=== PATIENT | male | born 1940 | race Caucasian/White ===

== ENCOUNTER 2020-09-23 16:35 | Inpatient (IN) ==
[2020-09-23 16:43] VITALS: BMI 25.8
--- NOTE | 2020-09-23 19:14 | DR.GENAD ---
HPI Time Seen Time Seen by Provider: 09/23/20 19:09 PCP Primary Care Physician: SARAHY HPI Comment HPI Comment: Patient presents with the complaint of flu-like illness x 3-4 days. Denies any known sick contacts. Dry cough. Denies any history of lung issues. Notes Stage 4 kidney disease but not on dialysis at this time. Complaint/Symptoms Chief Complaint:: PATIENT CAME TO ER REPORTS FEVER, WEAKNESS, AND COUGH. COVID-19 Coronavirus risk:travel/contact w/high risk person: No Has patient experienced Coronavirus symptoms: Yes Coronavirus symptoms experienced: Fever and Shortness of Breath Source History Provided: Patient Mode of Arrival Mode of Arrival: Wheelchair Timing Onset of Chief Complaint: 09/20/20 PMH PMH Past Medical History: Yes Past Medical History: Hypertension Past Medical History Comment: STAGE 4 KIDNEY DZ Past Surgical History: Yes Past Surgical History Comment: RIGHT ARM Family History History of Family Medical Conditions: Yes Family Medical History: Hypertension Travel Risk Coronavirus risk:travel/contact w/high risk person: No Has patient experienced Coronavirus symptoms: Yes Coronavirus symptoms experienced: Fever and Shortness of Breath Infectious screening In the last 2 months have you had wt loss of >10#?: NO Have you had fever, night sweats or hemotysis?: No Have you traveled outside the country in the last 6 months?: No Isolation: Standard ROS Review of Systems Constitutional: See HPI, Chills, Malaise and Weakness Respiratoy: Dry Cough All Other Systems: Reviewed and Negative PE Vital Signs Vitals: Temperature 99.0 F Pulse Rate 85 Respiratory Rate 20 Blood Pressure 136/78 O2 Sat by Pulse Oximetry 95 General Limitations: No Limitations General Appearance: Alert and In No Apparent Distress Head Head Exam: Normal Inspection, Atraumatic and Normocephalic Eyes Eye exam: Normal Appearance and EOMI ENT ENT Exam: Normal Exam and Normal Oropharynx Neck Neck Exam: Normal Inspection and Trachea Midline Chest Chest Inspection: Normal Inspection and Symmetric Chest Wall Rise Respiratory Respiratory Exam: Normal Lung Sounds Bilat Respiratory Exam: Bilateral: Rhonchi Cardiovascular Cardiovascular Exam: Regular Rate, Normal Rhythm and Normal Heart Sounds Abdominal Exam Abdominal Exam: Normal Inspection, Normal Bowel Sounds and Soft Neurologic Neurological Exam: Alert and Oriented X3 Psychiatric Psychiatric Exam: Normal Affect and Normal Mood Skin Skin Exam: Warm, Dry and Intact COURSE Treatment Treatment: Unable to get CTA chest due to elevated serum Cr level. Reevaluation 1st: Unchanged Consultation Consultation Comments: Spoke with Dr. Gudino who accepts this patient for admission. ROR Labs Reviewed Laboratory Results Reviewed?: Yes Result Diagrams: 09/23/20 19:21 09/23/20 19:21 Laboratory: WBC 7.5 X10^3/uL (3.6-10.0) 09/23/20 19:21 RBC 4.73 X10^6/uL (4.7-6.0) 09/23/20 19:21 Hgb 14.9 g/dL (13.5-18.0) 09/23/20 19: Hct 42.3 % (42.0-54.0) 09/23/20 19: MCV 89.4 fL (80.0-100.0) 09/23/20 19: MCH 31.5 pg (27.0-34.0) 09/23/20 19: MCHC 35.2 g/dL (33.0-35.0) H 09/23/20 19: RDW 14.1 % (11.6-16.5) 09/23/20 19: Plt Count 158 X10^3/uL (150.0-450.0) 09/23/20 19: MPV 6.6 fL (7.4-11.0) L 09/23/20 19:21 Neut % (Auto) 69.3 % (42.0-75.0) 09/23/20 19:21 Lymph % (Auto) 11.7 % (21.0-51.0) L 09/23/20 19:21 [place] % (Auto) 18.1 % (0.0-13.0) H 09/23/20 19:21 Eos % (Auto) 0.2 % (0.9-2.9) L 09/23/20 19:21 Baso % (Auto) 0.7 % (0.2-1.0) 09/23/20 19:21 Neut # (Auto) 5.2 x10^3/uL (2.2-4.8) H 09/23/20 19:21 Lymph # (Auto) 0.9 X10^3/uL (1.3-2.9) L 09/23/20 19:21 [place] # (Auto) 1.4 x10^3/uL (0.3-0.8) H 09/23/20 19:21 Eos # (Auto) 0.0 x10^3/uL (0.0-0.2) 09/23/20 19:21 Baso # (Auto) 0.0 X10^3/uL (0.0-0.1) 09/23/20 19:21 Absolute Nucleated RBC 0.0 /100WBC 09/23/20 19:21 D-Dimer 1.69 ug/ml (0.0-0.57) H* 09/23/20 19:21 Sample Site Lra 09/23/20 19:34 ABG pH 7.460 (7.35-7.45) H 09/23/20 19:34 ABG pCO2 24.0 mmHg (35.0-45.0) L 09/23/20 19:34 ABG pO2 72.0 mmHg (80.0-100.0) L 09/23/20 19:34 ABG HCO3 17.1 mmol/L (22-26) L* 09/23/20 19:34 ABG O2 Saturation 95.0 % (90-100) 09/23/20 19:34 ABG Base Excess -5.1 mmol/L (-2.0-2.0) L 09/23/20 19:34 Stiven Test Pos 09/23/20 19:34 A-a Gradient 48.0 mmHg 09/23/20 19:34 FiO2 21.0 09/23/20 19:34 Blood Gas Comments Jani well mts 09/23/20 19:34 Sodium 136 mmol/L (136-145) 09/23/20 19:21 Corrected Sodium TNP 09/23/20 19:21 Potassium 5.2 mmol/L (3.5-5.1) H 09/23/20 19:21 Chloride 101 mmol/L (98-107) 09/23/20 19:21 Carbon Dioxide 21.7 mmol/L (21-32) 09/23/20 19:21 BUN 38 mg/dL (7-18) H 09/23/20 19:21 Creatinine 2.81 mg/dL (0.70-1.30) H 09/23/20 19:21 Est GFR (MDRD) Af Amer 28 (>60) L 09/23/20 19:21 Est GFR (MDRD) Non-Af 23 (>60) L 09/23/20 19:21 Glucose 89 mg/dL (65-99) 09/23/20 19:21 Calcium 8.6 mg/dL (8.5-10.1) 09/23/20 19:21 Corrected Calcium TNP 09/23/20 19:21 Total Bilirubin 0.80 mg/dL (0.2-1.0) 09/23/20 19:21 AST 28 Units/L (15-37) 09/23/20 19:21 ALT 35 Units/L (12-78) 09/23/20 19:21 Alkaline Phosphatase 92 Units/L (46-116) 09/23/20 19:21 Creatine Kinase 81 Units/L (39-308) 09/23/20 19:21 CK-MB (CK-2) < 1.0 ng/mL (0-4.0) 09/23/20 19: CK/CKMB % Calc 1.2 % (<4) 09/23/20 19:21 Troponin I < 0.02 ng/mL (0-1.5) 09/23/20 19:21 B-Natriuretic Peptide 42.8 pg/mL (0-79) 09/23/20 19:21 Total Protein 7.9 g/dL (6.4-8.2) 09/23/20 19:21 Albumin 3.9 g/dL (3.4-5.0) 09/23/20 19: Globulin 4.0 g/dL (2.5-4.5) 09/23/20 19:21 Albumin/Globulin Ratio 1.0 Ratio (1.1-2.1) L 09/23/20 19:21 SARS-CoV-2 (PCR) Positive (NEGATIVE) A 09/23/20 19:53 Influenza Type A (PCR) Negative (NEGATIVE) 09/23/20 19:53 Influenza Type B (PCR) Negative (NEGATIVE) 09/23/20 19:53 RSV (PCR) Negative (NEGATIVE) 09/23/20 19:53 XRAY X-ray Results: HISTORY PATIENT CAME TO ER REPORTS FEVER, WEAKNESS, AND COUGH STUDY CHEST, 1 VIEW COMPARISON None available. FINDINGS The trachea is midline. The cardiac silhouette is borderline. Background changes of COPD are suggested with blunting of the left CP angle which can be seen with pleural thickening or a tiny pleural effusion. Although no lobar infiltrates are seen, central peribronchial wall thickening is observed which ca n be seen with an acute chronic bronchitis. Please correlate medically. The bony thorax is unremarkable. IMPRESSION As above. Electronically signed by: KWAN VORA III (Sep 23, 2020 20:22:03) Opioid Opioid Risk Tool Age ([place]osea box if 16-45): No History of Preadolescent Sexual Abuse: No Total: 0 Total Score Risk Category: Low Risk Copyright: Trae FLOWER predicting aberrant behaviors Diagnosis Discharge Problem: Pneumonia due to 2019 novel coronavirus
[2020-09-23 19:29] LABS: BASOPHILS % (AUTO) 0.7 % (0.2-1.0); EOSINOPHILS % (AUTO) 0.2 % (0.9-2.9); HEMATOCRIT 42.3 % (42.0-54.0); HEMOGLOBIN 14.9 g/dL (13.5-18.0); LYMPHOCYTES # (AUTO) 0.9 X10^3/uL (1.3-2.9); LYMPHOCYTES % (AUTO) 11.7 % (21.0-51.0); MEAN CORPUSCULAR HEMOGLOBIN 31.5 pg (27.0-34.0); MEAN CORPUSCULAR HGB CONC 35.2 g/dL (33.0-35.0); MEAN CORPUSCULAR VOLUME 89.4 fL (80.0-100.0); MEAN PLATELET VOLUME 6.6 fL (7.4-11.0); MONOCYTES # (AUTO) 1.4 x10^3/uL (0.3-0.8); MONOCYTES % (AUTO) 18.1 % (0.0-13.0); NEUTROPHILS # (AUTO) 5.2 x10^3/uL (2.2-4.8); NEUTROPHILS % (AUTO) 69.3 % (42.0-75.0); PLATELET COUNT 158 X10^3/uL (150.0-450.0); RED BLOOD COUNT 4.73 X10^6/uL (4.7-6.0); RED CELL DISTRIBUTION WIDTH 14.1 % (11.6-16.5); WHITE BLOOD COUNT 7.5 X10^3/uL (3.6-10.0)
[2020-09-23 19:35] LABS: ABG ALLEN TEST POS; ABG BASE EXCESS -5.1 mmol/L (-2.0-2.0); ABG HCO3 17.1 mmol/L (22-26)
[2020-09-23 19:52] LABS: ALANINE AMINOTRANSFERASE 35 Units/L (12-78); ALBUMIN 3.9 g/dL (3.4-5.0); ALKALINE PHOSPHATASE 92 Units/L (46-116); ASPARTATE AMINO TRANSFERASE 28 Units/L (15-37); BLOOD UREA NITROGEN 38 mg/dL (7-18); CALCIUM 8.6 mg/dL (8.5-10.1); CARBON DIOXIDE 21.7 mmol/L (21-32); CHLORIDE 101 mmol/L (98-107); CKMB % 1.2 % (<4); CREATINE KINASE 81 Units/L (39-308); CREATINE KINASE MB < 1.0 ng/mL (0-4.0); CREATININE 2.81 mg/dL (0.70-1.30); SODIUM 136 mmol/L (136-145); TOTAL PROTEIN 7.9 g/dL (6.4-8.2); TROPONIN I < 0.02 ng/mL (0-1.5); eGFR NON BLACK RACES 23 (>60)
--- NOTE | 2020-09-23 20:24 | RAD ---
HISTORYPATIENT CAME TO ER REPORTS FEVER, WEAKNESS, AND COUGHSTUDYCHEST, 1 VIEWCOMPARISONNone available.FINDINGSThe trachea is midline. The cardiac silhouette is borderline. Background changes of COPD are suggested with blunting of the left CP angle which can be seen with pleural thickening or a tiny pleural effusion. Although no lobar infiltrates are seen, central peribronchial wall thickening is observed which can be seen with an acute chronic bronchitis. Please correlate medically. The bony thorax is unremarkable.IMPRESSIONAs above.Electronically signed by: KWAN VORA III (Sep 23, 2020 20:22:03)
[2020-09-23] MEDS ORDERED: REMDESIVIR 200 MG in NS 250 ML IV 250 ML IV ONE (21:09)
[2020-09-23] MEDS ORDERED: REMDESIVIR IV ONE (21:34)
[2020-09-23] MEDS ORDERED: NS 250 ML IV 250 ML IV ONE (21:34)
[2020-09-23] MEDS ORDERED: NS 1000 ML 1,000 ML ONE (21:34)
[2020-09-23] MEDS: NS 1000 ML 1,000 ML IV SCH (21:48)
[2020-09-23] MEDS ORDERED: PHARMACY CONSULT - IVERMECTIN XX SCH (22:00)
[2020-09-23] MEDS: IVERMECTIN PO SCH (22:26)
[2020-09-24] MEDS ORDERED: NS 100 ML IV 100 ML ONE (01:33)
[2020-09-24] MEDS ORDERED: ASCORBIC ACID INJ MULTI-DOSE VIAL IV ONE (01:51)
[2020-09-24] MEDS: ASCORBIC ACID INJ MULTI-DOSE VIAL 1,500 MG in NS 100 ML IV 100 ML IV SCH ×4 (03:14→21:09)
[2020-09-24] MEDS ORDERED: TYLENOL 325 MG TAB PO PRN (03:39)
[2020-09-24 05:21] LABS: BASOPHILS % (AUTO) 0.2 % (0.2-1.0); HEMATOCRIT 39.5 % (42.0-54.0); HEMOGLOBIN 13.8 g/dL (13.5-18.0); LYMPHOCYTES # (AUTO) 0.3 X10^3/uL (1.3-2.9); LYMPHOCYTES % (AUTO) 4.8 % (21.0-51.0); MEAN CORPUSCULAR HEMOGLOBIN 31.1 pg (27.0-34.0); MEAN CORPUSCULAR HGB CONC 34.9 g/dL (33.0-35.0); MEAN CORPUSCULAR VOLUME 89.2 fL (80.0-100.0); MEAN PLATELET VOLUME 7.2 fL (7.4-11.0); MONOCYTES # (AUTO) 0.9 x10^3/uL (0.3-0.8); MONOCYTES % (AUTO) 14.5 % (0.0-13.0); NEUTROPHILS % (AUTO) 80.5 % (42.0-75.0); PLATELET COUNT 135 X10^3/uL (150.0-450.0); RED BLOOD COUNT 4.43 X10^6/uL (4.7-6.0); RED CELL DISTRIBUTION WIDTH 13.9 % (11.6-16.5); WHITE BLOOD COUNT 6.2 X10^3/uL (3.6-10.0)
[2020-09-24 05:30] LABS: ALANINE AMINOTRANSFERASE 41 Units/L (12-78); ALBUMIN 3.3 g/dL (3.4-5.0); ALKALINE PHOSPHATASE 77 Units/L (46-116); ASPARTATE AMINO TRANSFERASE 25 Units/L (15-37); BLOOD UREA NITROGEN 40 mg/dL (7-18); CALCIUM 7.8 mg/dL (8.5-10.1); CARBON DIOXIDE 18.9 mmol/L (21-32); CHLORIDE 100 mmol/L (98-107); COR CA(FOR HYPOALB) 8.4 mg/dL (8.5-10.1); CREATININE 2.66 mg/dL (0.70-1.30); SODIUM 137 mmol/L (136-145); TOTAL PROTEIN 6.8 g/dL (6.4-8.2); TROPONIN I < 0.02 ng/mL (0-1.5); eGFR NON BLACK RACES 25 (>60)
[2020-09-24] MEDS: BROVANA IN SCH ×2 (08:45→21:37)
[2020-09-24] MEDS: PULMICORT NEB TX 0.5 MG NEB SCH ×2 (08:45→21:43)
[2020-09-24] MEDS ORDERED: VITAMIN D (1.25MG) PO SCH (09:00)
[2020-09-24] MEDS ORDERED: VITAMIN A PO SCH (09:00)
[2020-09-24] MEDS ORDERED: LIPITOR TAB 80 MG PO SCH (09:00)
[2020-09-24] MEDS ORDERED: TRICOR TAB 160 MG PO SCH (09:00)
[2020-09-24] MEDS ORDERED: VIBRAMYCIN PO SCH (09:00)
[2020-09-24] MEDS ORDERED: PEPCID TAB 40 MG PO SCH (09:00)
--- NOTE | 2020-09-24 09:41 | RAD ---
HISTORYCOVID-19STUDYCHEST, 1 [id number]/2021FINDINGSStable cardiomediastinal silhouette. Increasing left base opacity with possible left effusion. Right lung grossly clear. No visible pneumothorax. No acute osseous finding.IMPRESSIONIncreasing left base opacity and possible left effusion.Electronically signed by: lAfonzo Montgomery (Sep 24, 2020 09:40:02)
[2020-09-24] MEDS: PriLOSEC PO SCH (09:58)
[2020-09-24] MEDS: DECADRON TAB PO SCH (09:59)
[2020-09-24] MEDS: ZINC SULFATE PO SCH ×2 (09:59→21:12)
[2020-09-24] MEDS: THIAMINE HCL INJ IVP SCH ×2 (10:00→21:11)
[2020-09-24] MEDS: LOVENOX INJ 30 MG SYR SC SCH (10:01)
--- NOTE | 2020-09-24 12:16 | DR.H&P ---
H&P History & Physical for Day of: H&P Date: 09/24/20 Chief Complaint Chief Complaint: Fever, weakness Cough Allergies Allergies Allergy/AdvReac Type Severity Reaction Status Date / Time No Known Drug Allergies Allergy Verified 09/23/20 16:39 History of Present Illness History of Present Illness: Pt is a 80 year old male past medical history of Hypertension, DMT2, CKD stage IV, presenting with fever, cough, and worsening weakness for the past 3 days. Pt does not recall being around anyone that has tested positive for COVID-19 and he is unvaccinated. Labs/imaging: COVID-19 positive, Wbc 7.5, Hgb 14.9, Plt 158, Na 136, K 5.2, Creatinine 2.81, Glucose 89, D-dimer 1.69, Troponin negative x2, ABG: pH 7.46, pCO2 24, pO2 72, HCO3 17, O2sat 95% on RA. CRP 27.4, Blood culture pending, CXR was obtained that revealed: Increasing left base opacity and possible left effusion. Will admit for COVID-19 pneumonia, start on treatment course that includes: IVF NS@75ml/h, Remdesivir, Decadron 6mg daily, scheduled Bronchodilators, Antibiotics: Zosyn, Ivermectin, immune supporting supplements, SSI, supplemental O2, I/S, Respiratory therapy consult, Pneumonia protocol. Restart home medications. Pt is currently requiring 2L nasal cannula supplemental O2. Will continue to closely monitor and follow up labs/imaging. Time spent on clinical assessment, reviewing labs and imaging, decision making, and documentation greater than 45 minutes. Past Medical History Past Medical History: Diabetes, Hypertension and Renal Disease Past Surgical History Surgical History: Other Family History Family Medical History: Coronary Artery Disease Social History Does patient currently use any type of tobacco product: No Have you used tobacco products in the last 12 months: No Type of Tobacco Use: None Does any household member use tobacco: No Alcohol Use: Occasionally Drug Use: None Medications Home Medications: No Known Drug Allergies Allergy (Verified 09/23/20 16:39) CONTINUE taking the following medications calcitriol 25 mcg PO Q OTHER DAY 09/24/20 [History] glipizide 10 mg PO DAILY 09/24/20 [History] magnesium oxide 400 mg PO BID 09/24/20 [History] rosuvastatin 40 mg PO DAILY 09/24/20 [History] sitagliptin [Januvia] 25 mg PO HS 09/24/20 [History] sodium bicarbonate 650 mg PO BID 09/24/20 [History] telmisartan 40 mg PO BID 09/24/20 [History] Labs Result Diagrams: 09/23/20 19:21 09/23/20 19:21 Labs: Laboratory WBC 7.5 X10^3/uL (3.6-10.0) 09/23/20 19: RBC 4.73 X10^6/uL (4.7-6.0) 09/23/20 19:21 Hgb 14.9 g/dL (13.5-18.0) 09/23/20 19: Hct 42.3 % (42.0-54.0) 09/23/20 19:21 MCV 89.4 fL (80.0-100.0) 09/23/20 19:21 MCH 31.5 pg (27.0-34.0) 09/23/20 19: MCHC 35.2 g/dL (33.0-35.0) H 09/23/20 19:21 RDW 14.1 % (11.6-16.5) 09/23/20 19: Plt Count 158 X10^3/uL (150.0-450.0) 09/23/20 19:21 MPV 6.6 fL (7.4-11.0) L 09/23/20 19:21 Neut % (Auto) 69.3 % (42.0-75.0) 09/23/20 19: Lymph % (Auto) 11.7 % (21.0-51.0) L 09/23/20 19:21 [place] % (Auto) 18.1 % (0.0-13.0) H 09/23/20 19:21 Eos % (Auto) 0.2 % (0.9-2.9) L 09/23/20 19:21 Baso % (Auto) 0.7 % (0.2-1.0) 09/23/20 19:21 Neut # (Auto) 5.2 x10^3/uL (2.2-4.8) H 09/23/20 19:21 Lymph # (Auto) 0.9 X10^3/uL (1.3-2.9) L 09/23/20 19:21 [place] # (Auto) 1.4 x10^3/uL (0.3-0.8) H 09/23/20 19:21 Eos # (Auto) 0.0 x10^3/uL (0.0-0.2) 09/23/20 19:21 Baso # (Auto) 0.0 X10^3/uL (0.0-0.1) 09/23/20 19:21 Absolute Nucleated RBC 0.0 /100WBC 09/23/20 19:21 D-Dimer 1.69 ug/ml (0.0-0.57) H* 09/23/20 19:21 Sample Site Lra 09/23/20 19:34 ABG pH 7.460 (7.35-7.45) H 09/23/20 19:34 ABG pCO2 24.0 mmHg (35.0-45.0) L 09/23/20 19:34 ABG pO2 72.0 mmHg (80.0-100.0) L 09/23/20 19:34 ABG HCO3 17.1 mmol/L (22-26) L* 09/23/20 19:34 ABG O2 Saturation 95.0 % (90-100) 09/23/20 19:34 ABG Base Excess -5.1 mmol/L (-2.0-2.0) L 09/23/20 19:34 Stiven Test Pos 09/23/20 19:34 A-a Gradient 48.0 mmHg 09/23/20 19:34 FiO2 21.0 09/23/20 19:34 Blood Gas Comments Jani well mts 09/23/20 19:34 Sodium 136 mmol/L (136-145) 09/23/20 19:21 Corrected Sodium TNP 09/23/20 19:21 Potassium 5.2 mmol/L (3.5-5.1) H 09/23/20 19:21 Chloride 101 mmol/L (98-107) 09/23/20 19:21 Carbon Dioxide 21.7 mmol/L (21-32) 09/23/20 19:21 BUN 38 mg/dL (7-18) H 09/23/20 19:21 Creatinine 2.81 mg/dL (0.70-1.30) H 09/23/20 19:21 Est GFR (MDRD) Af Amer 28 (>60) L 09/23/20 19:21 Est GFR (MDRD) Non-Af 23 (>60) L 09/23/20 19:21 Glucose 89 mg/dL (65-99) 09/23/20 19:21 Calcium 8.6 mg/dL (8.5-10.1) 09/23/20 19:21 Corrected Calcium TNP 09/23/20 19:21 Total Bilirubin 0.80 mg/dL (0.2-1.0) 09/23/20 19:21 AST 28 Units/L (15-37) 09/23/20 19:21 ALT 35 Units/L (12-78) 09/23/20 19:21 Alkaline Phosphatase 92 Units/L (46-116) 09/23/20 19:21 Creatine Kinase 81 Units/L (39-308) 09/23/20 19:21 CK-MB (CK-2) < 1.0 ng/mL (0-4.0) 09/23/20 19:21 CK/CKMB % Calc 1.2 % (<4) 09/23/20 19:21 Troponin I < 0.02 ng/mL (0-1.5) 09/23/20 19:21 C-Reactive Protein 27.40 mg/L (0-3.0) H 09/24/20 04:40 B-Natriuretic Peptide 42.8 pg/mL (0-79) 09/23/20 19:21 Total Protein 7.9 g/dL (6.4-8.2) 09/23/20 19:21 Albumin 3.9 g/dL (3.4-5.0) 09/23/20 19:21 Globulin 4.0 g/dL (2.5-4.5) 09/23/20 19:21 Albumin/Globulin Ratio 1.0 Ratio (1.1-2.1) L 09/23/20 19:21 SARS-CoV-2 (PCR) Positive (NEGATIVE) A 09/23/20 19:53 Influenza Type A (PCR) Negative (NEGATIVE) 09/23/20 19:53 Influenza Type B (PCR) Negative (NEGATIVE) 09/23/20 19:53 RSV (PCR) Negative (NEGATIVE) 09/23/20 19:53 Review of Systems Constitutional: Fever, Chills and Weakness Eyes: No Symptoms Reported ENT: No Symptoms Reported Respiratory: Cough; denies Shortness of Breath and Wheezing Cardiovascular: No Symptoms Reported Gastrointestinal: No Symptoms Reported Genitourinary: No Symptoms Reported Musculoskeletal: No Symptoms Reported Skin: No Symptoms Reported Neurological: No Symptoms Reported Physical Exam Vital Signs: Temperature 98.9 F Pulse Rate [Right] 94 Pulse Rate 74 Respiratory Rate 14 Blood Pressure [Right Arm] 150/82 Blood Pressure 139/75 O2 Sat by Pulse Oximetry 99 Oriented: Normal Eyes: Normal Ear: Normal Nose: Normal Throat: Normal Respiratory: Diminished Throughout, RLL Exp. Wheeze and LLL Exp. Wheeze Cardiovascular: Normal : Normal Auscultation: Bowel Sounds: Normal Palpation: Normal Tenderness: Normal Skin: Normal Musculoskeletal: Normal Psychiatric: Normal Mood Description: Calm and Appropriate Affect: Normal Speech Pattern: Clear and Appropriate Assessment/Plan (1) Pneumonia due to 2019 novel coronavirus: Status: Acute Plan: Pneumonia protocol. Review H&P Reviewed: Yes Patient was examined?: Yes
[2020-09-24] MEDS ORDERED: ROCALTROL PO SCH (13:00)
[2020-09-24] MEDS: ZOSYN VIAL 3.375 GRAMS 3.375 G in NS 100 ML IV + SPIKE MINIBAG* 100 ML IV SCH ×3 (14:00→21:12)
[2020-09-24] MEDS: NS 1000 ML 1,000 ML IV SCH ×2 (15:18→21:12)
[2020-09-24] MEDS: HumuLIN R SC PRN ×2 (17:27→21:37)
[2020-09-24] MEDS ORDERED: SITAGLIPTIN 50 MG PO SCH (21:00)
[2020-09-24] MEDS: REMDESIVIR 100 MG in NS 250 ML IV 250 ML IV SCH (21:09)
[2020-09-24] MEDS: MELATONIN PO SCH (21:10)
[2020-09-24] MEDS: MAG-OX TAB PO SCH (21:10)
[2020-09-24] MEDS: SODIUM BICARBONATE TAB 650MG PO SCH (21:16)
[2020-09-24] MEDS: IVERMECTIN PO SCH (22:48)
[2020-09-25] MEDS: ASCORBIC ACID INJ MULTI-DOSE VIAL 1,500 MG in NS 100 ML IV 100 ML IV SCH ×4 (02:03→21:25)
[2020-09-25 05:34] LABS: BASOPHILS % (AUTO) 0.4 % (0.2-1.0); EOSINOPHILS # (AUTO) 0.1 x10^3/uL (0.0-0.2); EOSINOPHILS % (AUTO) 3.1 % (0.9-2.9); HEMATOCRIT 38.4 % (42.0-54.0); HEMOGLOBIN 13.6 g/dL (13.5-18.0); LYMPHOCYTES # (AUTO) 0.4 X10^3/uL (1.3-2.9); LYMPHOCYTES % (AUTO) 10.3 % (21.0-51.0); MEAN CORPUSCULAR HEMOGLOBIN 31.5 pg (27.0-34.0); MEAN CORPUSCULAR HGB CONC 35.3 g/dL (33.0-35.0); MEAN CORPUSCULAR VOLUME 89.2 fL (80.0-100.0); MEAN PLATELET VOLUME 7.5 fL (7.4-11.0); MONOCYTES # (AUTO) 0.6 x10^3/uL (0.3-0.8); MONOCYTES % (AUTO) 14.3 % (0.0-13.0); NEUTROPHILS # (AUTO) 3.1 x10^3/uL (2.2-4.8); NEUTROPHILS % (AUTO) 71.9 % (42.0-75.0); PLATELET COUNT 118 X10^3/uL (150.0-450.0); RED BLOOD COUNT 4.31 X10^6/uL (4.7-6.0)
[2020-09-25 05:42] LABS: ALBUMIN 2.9 g/dL (3.4-5.0); CALCIUM 7.3 mg/dL (8.5-10.1); CARBON DIOXIDE 18.5 mmol/L (21-32); COR CA(FOR HYPOALB) 8.2 mg/dL (8.5-10.1); CREATININE 2.4 mg/dL (0.70-1.30); TOTAL PROTEIN 5.7 g/dL (6.4-8.2)
[2020-09-25] MEDS: ZOSYN VIAL 3.375 GRAMS 3.375 G in NS 100 ML IV + SPIKE MINIBAG* 100 ML IV SCH ×3 (05:45→22:33)
[2020-09-25 05:52] LABS: PLATELET MORPHOLOGY COMMENT NORMAL (NORMAL); WHITE BLOOD COUNT 4.7 X10^3/uL (3.6-10.0)
[2020-09-25] MEDS: HumuLIN R SC PRN ×4 (06:30→20:45)
[2020-09-25] MEDS ORDERED: VITAMIN D3 125 mcg (5,000 UNITS) PO SCH (09:00)
[2020-09-25] MEDS ORDERED: REMDESIVIR 100 MG in NS 250 ML IV 250 ML IV ONE (09:00)
[2020-09-25] MEDS ORDERED: GLUCOTROL XL 24-HR PO SCH (09:00)
[2020-09-25] MEDS: BROVANA IN SCH ×2 (09:25→20:50)
[2020-09-25] MEDS: PULMICORT NEB TX 0.5 MG NEB SCH ×2 (09:25→20:55)
--- NOTE | 2020-09-25 09:52 | RAD ---
HISTORYPNEUMONIASTUDYCHEST, 1 VIEWCOMPARISONChest radiograph dated September 24, 2020.FINDINGSThe trachea is midline. The cardiac silhouette is unremarkable. There is an improving left basilar airspace opacity/infiltrate with unchanged peribronchial wall thickening and central interstitial disease. No other changes seen. The bony thorax is unremarkable.IMPRESSIONImproved left basilar airspace disease/infiltrate, as above.Electronically signed by: KWAN VORA III (Sep 25, 2020 09:50:22)
[2020-09-25] MEDS: LOVENOX INJ 30 MG SYR SC SCH (09:53)
[2020-09-25] MEDS: PriLOSEC PO SCH (09:55)
[2020-09-25] MEDS: CRESTOR TAB 10 MG PO SCH (09:55)
[2020-09-25] MEDS: MAG-OX TAB PO SCH ×2 (09:57→20:45)
[2020-09-25] MEDS: DECADRON TAB PO SCH (09:57)
[2020-09-25] MEDS: ZINC SULFATE PO SCH ×2 (09:58→20:45)
[2020-09-25] MEDS: VITAMIN A PO SCH (09:58)
[2020-09-25] MEDS: SODIUM BICARBONATE TAB 650MG PO SCH ×2 (09:58→20:45)
[2020-09-25] MEDS: THIAMINE HCL INJ IVP SCH ×2 (09:58→20:45)
--- NOTE | 2020-09-25 11:22 | PCM.PROG ---
Progress Note Progress Note for Day of Date of Exam: 09/25/20 Subjective Subjective: Pt is a 80 year old male past medical history of Hypertension, DMT2, CKD stage IV, admitted for COVID-19 pneumonia and Acute on Chronic Renal Failure, Dehydration. This morning patient reports feeling significantly better. He is sitting comfortably in recliner on 2L nasal cannula. No acute events overnight. Labs/imaging: Wbc 4.7, Hgb 13.6, Plt 118, Na 138, K 4.4, Creatinine 2.81>2.40, Glucose 367, CRP 27>32, CXR was obtained that revealed: Improved left basilar airspace disease/infiltrate, as above. Treatment course includes: IVF NS@75ml/h, Remdesivir, Decadron 6mg daily, scheduled Bronchodilators, Antibiotics: Zosyn, Ivermectin, immune supporting supplements, SSI, supplemental O2, I/S, Respiratory therapy consult, Pneumonia protocol. Wean supplemental O2 as tolerated. Otherwise continue with current treatment plan. Will continue to closely monitor and follow up labs/imaging. Time spent on clinical assessment, reviewing labs and imaging, decision making, and documentation greater than 45 minutes. Past Medical Family Social History Past Med/Fam/Surg Hx: No changes since H&P Allergies: Allergies No Known Drug Allergies Allergy (Verified 09/23/20 16:39) Review of Systems ROS: No change since H&P Vital Signs and I&O's Vital Signs: Temperature 97.6 F Pulse Rate [Right] 94 Pulse Rate 68 Respiratory Rate 16 Blood Pressure [Right Arm] 150/82 Blood Pressure 158/87 O2 Sat by Pulse Oximetry 94 Intake and Output: Intake & Output 09/22/20 09/23/20 09/24/20 09/25/20 23:59 23:59 23:59 23:59 Intake Total 270 / 270 1482 / 1482 2112 / 2112 Output Total 550 / 550 675 / 675 Balance 270 / 270 932 / 932 1437 / 1437 Physical Exam Oriented: Normal Eyes: Normal Ear: Normal Nose: Normal Throat: Normal Respiratory: Rales Cardiovascular: Normal : Normal Auscultation: Bowel Sounds: Normal Tenderness: Normal Skin: Normal Musculoskeletal: Normal Psychiatric: Normal Mood Description: Calm and Appropriate Affect: Normal Speech Pattern: Clear and Appropriate Laboratory and Diagnostics Result Diagrams: 09/25/20 04:46 09/25/20 04:46 Labs: Laboratory WBC 4.7 X10^3/uL (3.6-10.0) 09/25/20 04:46 RBC 4.31 X10^6/uL (4.7-6.0) L 09/25/20 04:46 Hgb 13.6 g/dL (13.5-18.0) 09/25/20 04:46 Hct 38.4 % (42.0-54.0) L 09/25/20 04:46 MCV 89.2 fL (80.0-100.0) 09/25/20 04:46 MCH 31.5 pg (27.0-34.0) 09/25/20 04:46 MCHC 35.3 g/dL (33.0-35.0) H 09/25/20 04:46 RDW 14.0 % (11.6-16.5) 09/25/20 04:46 Plt Count 118 X10^3/uL (150.0-450.0) L 09/25/20 04:46 Plt Count Comment Decreased (ADEQUATE) 09/25/20 04:46 MPV 7.5 fL (7.4-11.0) 09/25/20 04:46 Neut % (Auto) 71.9 % (42.0-75.0) 09/25/20 04:46 Lymph % (Auto) 10.3 % (21.0-51.0) L 09/25/20 04:46 [place] % (Auto) 14.3 % (0.0-13.0) H 09/25/20 04:46 Eos % (Auto) 3.1 % (0.9-2.9) H 09/25/20 04:46 Baso % (Auto) 0.4 % (0.2-1.0) 09/25/20 04:46 Neut # (Auto) 3.1 x10^3/uL (2.2-4.8) 09/25/20 04:46 Lymph # (Auto) 0.4 X10^3/uL (1.3-2.9) L 09/25/20 04:46 [place] # (Auto) 0.6 x10^3/uL (0.3-0.8) 09/25/20 04:46 Eos # (Auto) 0.1 x10^3/uL (0.0-0.2) 09/25/20 04:46 Baso # (Auto) 0.0 X10^3/uL (0.0-0.1) 09/25/20 04:46 Absolute Nucleated RBC 0.2 /100WBC 09/25/20 04:46 Plt Morphology Comment Normal (NORMAL) 09/25/20 04:46 RBC Morphology Normal (NORMAL) 09/25/20 04:46 D-Dimer 1.69 ug/ml (0.0-0.57) H* 09/23/20 19:21 Sample Site Lra 09/23/20 19:34 ABG pH 7.460 (7.35-7.45) H 09/23/20 19:34 ABG pCO2 24.0 mmHg (35.0-45.0) L 09/23/20 19:34 ABG pO2 72.0 mmHg (80.0-100.0) L 09/23/20 19:34 ABG HCO3 17.1 mmol/L (22-26) L* 09/23/20 19:34 ABG O2 Saturation 95.0 % (90-100) 09/23/20 19:34 ABG Base Excess -5.1 mmol/L (-2.0-2.0) L 09/23/20 19:34 Stiven Test Pos 09/23/20 19:34 A-a Gradient 48.0 mmHg 09/23/20 19:34 FiO2 21.0 09/23/20 19:34 Blood Gas Comments Jani well mts 09/23/20 19:34 Sodium 138 mmol/L (136-145) 09/25/20 04:46 Corrected Sodium 144 mmol/L (136-145) 09/25/20 04:46 Potassium 4.4 mmol/L (3.5-5.1) 09/25/20 04:46 Chloride 105 mmol/L (98-107) 09/25/20 04:46 Carbon Dioxide 18.5 mmol/L (21-32) L 09/25/20 04:46 BUN 45 mg/dL (7-18) H 09/25/20 04:46 Creatinine 2.40 mg/dL (0.70-1.30) H 09/25/20 04:46 Est GFR (MDRD) Af Amer 34 (>60) L 09/25/20 04:46 Est GFR (MDRD) Non-Af 28 (>60) L 09/25/20 04:46 Glucose 367 mg/dL (65-99) H 09/25/20 04:46 POC Glucose (mg/dL) 388 mg/dL (65-99) H 09/25/20 00:43 Calcium 7.3 mg/dL (8.5-10.1) L 09/25/20 04:46 Corrected Calcium 8.2 mg/dL (8.5-10.1) L 09/25/20 04:46 Total Bilirubin 0.40 mg/dL (0.2-1.0) 09/25/20 04:46 AST 25 Units/L (15-37) 09/25/20 04:46 ALT 39 Units/L (12-78) 09/25/20 04:46 Alkaline Phosphatase 68 Units/L (46-116) 09/25/20 04:46 Creatine Kinase 81 Units/L (39-308) 09/23/20 19:21 CK-MB (CK-2) < 1.0 ng/mL (0-4.0) 09/23/20 19:21 CK/CKMB % Calc 1.2 % (<4) 09/23/20 19:21 Troponin I < 0.02 ng/mL (0-1.5) 09/23/20 19:21 C-Reactive Protein 32.70 mg/L (0-3.0) H 09/25/20 04:46 B-Natriuretic Peptide 42.8 pg/mL (0-79) 09/23/20 19:21 Total Protein 5.7 g/dL (6.4-8.2) L 09/25/20 04:46 Albumin 2.9 g/dL (3.4-5.0) L 09/25/20 04:46 Globulin 2.8 g/dL (2.5-4.5) 09/25/20 04:46 Albumin/Globulin Ratio 1.0 Ratio (1.1-2.1) L 09/25/20 04:46 SARS-CoV-2 (PCR) Positive (NEGATIVE) A 09/23/20 19:53 Influenza Type A (PCR) Negative (NEGATIVE) 09/23/20 19:53 Influenza Type B (PCR) Negative (NEGATIVE) 09/23/20 19:53 RSV (PCR) Negative (NEGATIVE) 09/23/20 19:53 Plan (1) Pneumonia due to 2019 novel coronavirus: Status: Acute Plan: Pneumonia protocol. (2) Acute on chronic renal failure: Status: Acute (3) Dehydration: Status: Acute
[2020-09-25] MEDS: NS 1000 ML 1,000 ML IV SCH ×2 (15:30→22:11)
[2020-09-25] MEDS: MELATONIN PO SCH (20:45)
[2020-09-25] MEDS: REMDESIVIR 100 MG in NS 250 ML IV 250 ML IV SCH (20:45)
[2020-09-25] MEDS ORDERED: JANUVIA PO SCH (21:00)
[2020-09-25] MEDS: IVERMECTIN PO SCH (22:12)
[2020-09-26] MEDS: HumuLIN R SC PRN ×2 (00:40→06:34)
[2020-09-26] MEDS: ASCORBIC ACID INJ MULTI-DOSE VIAL 1,500 MG in NS 100 ML IV 100 ML IV SCH ×2 (03:37→09:27)
[2020-09-26] MEDS: ZOSYN VIAL 3.375 GRAMS 3.375 G in NS 100 ML IV + SPIKE MINIBAG* 100 ML IV SCH (05:11)
[2020-09-26 05:27] LABS: BASOPHILS % (AUTO) 0 % (0.2-1.0); HEMATOCRIT 37.9 % (42.0-54.0); HEMOGLOBIN 13.4 g/dL (13.5-18.0); LYMPHOCYTES # (AUTO) 0.5 X10^3/uL (1.3-2.9); LYMPHOCYTES % (AUTO) 6.1 % (21.0-51.0); MEAN CORPUSCULAR HGB CONC 35.4 g/dL (33.0-35.0); MEAN CORPUSCULAR VOLUME 87.7 fL (80.0-100.0); MEAN PLATELET VOLUME 7.2 fL (7.4-11.0); MONOCYTES # (AUTO) 0.8 x10^3/uL (0.3-0.8); MONOCYTES % (AUTO) 10.1 % (0.0-13.0); NEUTROPHILS # (AUTO) 6.8 x10^3/uL (2.2-4.8); NEUTROPHILS % (AUTO) 83.8 % (42.0-75.0); PLATELET COUNT 152 X10^3/uL (150.0-450.0); RED BLOOD COUNT 4.32 X10^6/uL (4.7-6.0); RED CELL DISTRIBUTION WIDTH 14.2 % (11.6-16.5); WHITE BLOOD COUNT 8.2 X10^3/uL (3.6-10.0)
[2020-09-26 05:50] LABS: ALBUMIN 2.9 g/dL (3.4-5.0); CALCIUM 7.4 mg/dL (8.5-10.1); CARBON DIOXIDE 17.1 mmol/L (21-32); COR CA(FOR HYPOALB) 8.3 mg/dL (8.5-10.1); CREATININE 2.53 mg/dL (0.70-1.30); TOTAL PROTEIN 6.1 g/dL (6.4-8.2)
--- NOTE | 2020-09-26 07:11 | RAD ---
HISTORYPNEUMONIA F/USTUDYCHEST, 1 VIEWCOMPARISONOne day prior.TECHNIQUEAP view of the chestFINDINGSCardiac and mediastinal contours are within normal limits. Unchanged left base opacity with silhouetting of the left hemidiaphragm. The right lung appears clear. No pneumothorax.IMPRESSIONNo significant change in left base opacity that may represent pneumonia with small pleural effusion.Electronically signed by: Alexandre Garrido (Sep 26, 2020 07:09:19)
--- NOTE | 2020-09-26 08:54 | W.DIS.FURT ---
Summary of Discharge Discharge Summary of Date Date of Exam: 09/26/20 Admission Date Date of Admission: 09/23/20 Admission Diagnosis Patient Problems (Updated 09/25/20 @ 11:20 by Osman Gudino) Pneumonia due to 2019 novel coronavirus (Acute) U07.1, J12.82 Hospital Course: Pt is a 80 year old male past medical history of Hypertension, DMT2, CKD stage IV, admitted for COVID-19 pneumonia and Acute on Chronic Renal Failure, Dehydration. His hospital/treatment course included: IVF NS@75ml/h, Remdesivir, Decadron 6mg daily, scheduled Bronchodilators, Antibiotics: Zosyn, Ivermectin, immune supporting supplements, SSI, supplemental O2, I/S, Respiratory therapy consult, Pneumonia protocol. Labs/imaging: Wbc 8.2, Hgb 13.4, Plt 152, Na 143, K 3.7, Creatinine 2.40>2.53, Glucose 236, CRP 20, CXR:No significant change in left base opacity that may represent pneumonia with small pleural effusion. Pt responded well to treatments and was not requiring oxygen on discharge. He was discharged in stable condition. Instructed to follow up with pcp in 3-5 days. Vital Signs: Vital Signs (72 hours) 09/23/20 16:40 09/23/20 18:28 09/23/20 18:30 Temperature 99.0 F Pulse Rate 98 H 81 83 Pulse Rate [Right] Respiratory Rate 20 Blood Pressure 122/71 111/57 Blood Pressure [Right Arm] O2 Sat by Pulse Oximetry 92 L 94 L 94 L 09/23/20 18:45 09/23/20 19:00 09/23/20 19:15 Temperature Pulse Rate 81 80 82 Pulse Rate [Right] Respiratory Rate Blood Pressure 109/66 Blood Pressure [Right Arm] O2 Sat by Pulse Oximetry 94 L 94 L 95 09/23/20 19:22 09/23/20 20:00 09/23/20 20:30 Temperature Pulse Rate 85 Pulse Rate [Right] Respiratory Rate Blood Pressure 136/78 131/74 Blood Pressure [Right Arm] O2 Sat by Pulse Oximetry 95 09/23/20 21:00 09/23/20 21:24 09/23/20 21:29 Temperature Pulse Rate 83 84 Pulse Rate [Right] Respiratory Rate Blood Pressure 170/94 Blood Pressure [Right Arm] O2 Sat by Pulse Oximetry 96 96 09/23/20 21:30 09/23/20 21:45 09/23/20 22:00 Temperature 98.2 F Pulse Rate 83 85 84 Pulse Rate [Right] 94 H Respiratory Rate 24 Blood Pressure 122/79 159/86 Blood Pressure [Right Arm] 150/82 O2 Sat by Pulse Oximetry 95 96 94 L 09/23/20 22:12 09/23/20 22:15 09/23/20 23:00 Temperature 98.2 F Pulse Rate 94 H 92 H Pulse Rate [Right] Respiratory Rate 20 24 24 Blood Pressure 150/82 159/86 Blood Pressure [Right Arm] O2 Sat by Pulse Oximetry 95 96 09/24/20 00:00 09/24/20 01:00 09/24/20 01:05 Temperature 98.4 F Pulse Rate 95 H 91 H 92 H Pulse Rate [Right] Respiratory Rate 23 20 15 Blood Pressure 169/78 161/82 161/82 Blood Pressure [Right Arm] O2 Sat by Pulse Oximetry 96 96 95 09/24/20 01:15 09/24/20 01:30 09/24/20 01:45 Temperature Pulse Rate 90 89 92 H Pulse Rate [Right] Respiratory Rate 28 H 26 H 22 Blood Pressure 141/67 Blood Pressure [Right Arm] O2 Sat by Pulse Oximetry 94 L 93 L 93 L 09/24/20 02:00 09/24/20 02:15 09/24/20 02:30 Temperature Pulse Rate 92 H 96 H 92 H Pulse Rate [Right] Respiratory Rate 24 21 18 Blood Pressure 151/77 162/74 Blood Pressure [Right Arm] O2 Sat by Pulse Oximetry 92 L 95 97 09/24/20 02:45 09/24/20 03:00 09/24/20 03:15 Temperature Pulse Rate 91 H 95 H 94 H Pulse Rate [Right] Respiratory Rate 27 H 22 28 H Blood Pressure 150/68 Blood Pressure [Right Arm] O2 Sat by Pulse Oximetry 97 96 96 09/24/20 03:30 09/24/20 03:45 09/24/20 04:00 Temperature 99.1 F Pulse Rate 92 H 91 H 85 Pulse Rate [Right] Respiratory Rate 26 H 26 H 26 H Blood Pressure 150/77 116/66 Blood Pressure [Right Arm] O2 Sat by Pulse Oximetry 97 96 95 09/24/20 04:15 09/24/20 04:30 09/24/20 04:45 Temperature Pulse Rate 84 85 85 Pulse Rate [Right] Respiratory Rate 23 21 23 Blood Pressure 153/69 Blood Pressure [Right Arm] O2 Sat by Pulse Oximetry 95 95 96 09/24/20 04:48 09/24/20 05:00 09/24/20 05:15 Temperature Pulse Rate 81 84 Pulse Rate [Right] Respiratory Rate 24 17 19 Blood Pressure 110/61 Blood Pressure [Right Arm] O2 Sat by Pulse Oximetry 94 L 94 L 09/24/20 05:30 09/24/20 05:45 09/24/20 05:48 Temperature Pulse Rate 83 78 Pulse Rate [Right] Respiratory Rate 19 26 H 24 Blood Pressure 132/70 Blood Pressure [Right Arm] O2 Sat by Pulse Oximetry 94 L 94 L 09/24/20 06:00 09/24/20 06:15 09/24/20 06:30 Temperature Pulse Rate 78 87 77 Pulse Rate [Right] Respiratory Rate 26 H 33 H 17 Blood Pressure 102/50 121/60 Blood Pressure [Right Arm] O2 Sat by Pulse Oximetry 93 L 94 L 96 09/24/20 06:45 09/24/20 07:00 09/24/20 07:15 Temperature Pulse Rate 75 77 74 Pulse Rate [Right] Respiratory Rate 25 H 18 17 Blood Pressure 136/68 Blood Pressure [Right Arm] O2 Sat by Pulse Oximetry 93 L 93 L 94 L 09/24/20 07:30 09/24/20 07:45 09/24/20 08:00 Temperature 98.9 F Pulse Rate 75 75 81 Pulse Rate [Right] Respiratory Rate 13 15 30 H Blood Pressure 134/67 120/87 Blood Pressure [Right Arm] O2 Sat by Pulse Oximetry 96 94 L 97 09/24/20 08:15 09/24/20 08:30 09/24/20 08:31 Temperature Pulse Rate 82 82 82 Pulse Rate [Right] Respiratory Rate 36 H 32 H 32 H Blood Pressure 139/75 Blood Pressure [Right Arm] O2 Sat by Pulse Oximetry 95 96 96 09/24/20 08:45 09/24/20 09:00 09/24/20 09:15 Temperature Pulse Rate 74 74 72 Pulse Rate [Right] Respiratory Rate 14 20 18 Blood Pressure 123/62 Blood Pressure [Right Arm] O2 Sat by Pulse Oximetry 99 95 97 09/24/20 09:30 09/24/20 09:45 07/31/21 10:00 Temperature Pulse Rate 70 73 74 Pulse Rate [Right] Respiratory Rate 23 21 22 Blood Pressure 126/64 139/72 Blood Pressure [Right Arm] O2 Sat by Pulse Oximetry 97 95 95 09/24/20 10:15 09/24/20 10:30 09/24/20 10:45 Temperature Pulse Rate 75 75 71 Pulse Rate [Right] Respiratory Rate 22 24 22 Blood Pressure 149/76 Blood Pressure [Right Arm] O2 Sat by Pulse Oximetry 96 97 97 09/24/20 11:00 09/24/20 11:15 09/24/20 11:30 Temperature Pulse Rate 79 75 77 Pulse Rate [Right] Respiratory Rate 28 H 23 25 H Blood Pressure 160/90 151/78 Blood Pressure [Right Arm] O2 Sat by Pulse Oximetry 96 95 96 09/24/20 11:45 09/24/20 12:00 09/24/20 12:15 Temperature 97.8 F Pulse Rate 76 79 79 Pulse Rate [Right] Respiratory Rate 32 H 14 29 H Blood Pressure 137/89 Blood Pressure [Right Arm] O2 Sat by Pulse Oximetry 96 93 L 88 L 09/24/20 12:30 09/24/20 12:45 09/24/20 13:00 Temperature Pulse Rate 76 72 71 Pulse Rate [Right] Respiratory Rate 35 H 25 H 22 Blood Pressure 151/77 157/77 Blood Pressure [Right Arm] O2 Sat by Pulse Oximetry 95 95 94 L 09/24/20 13:15 09/24/20 13:30 09/24/20 13:45 Temperature Pulse Rate 70 70 70 Pulse Rate [Right] Respiratory Rate 30 H 36 H 38 H Blood Pressure 165/75 Blood Pressure [Right Arm] O2 Sat by Pulse Oximetry 95 95 94 L 09/24/20 14:00 09/24/20 14:15 09/24/20 14:30 Temperature Pulse Rate 70 74 72 Pulse Rate [Right] Respiratory Rate 28 H 24 23 Blood Pressure 133/71 145/75 Blood Pressure [Right Arm] O2 Sat by Pulse Oximetry 93 L 93 L 93 L 09/24/20 14:45 09/24/20 15:00 09/24/20 15:25 Temperature Pulse Rate 75 83 Pulse Rate [Right] Respiratory Rate 23 Blood Pressure Blood Pressure [Right Arm] O2 Sat by Pulse Oximetry 97 97 97 09/24/20 15:30 09/24/20 15:45 09/24/20 16:00 Temperature 98.4 F Pulse Rate 79 76 77 Pulse Rate [Right] Respiratory Rate Blood Pressure 151/75 Blood Pressure [Right Arm] O2 Sat by Pulse Oximetry 95 94 L 94 L 09/24/20 16:15 09/24/20 16:30 09/24/20 16:45 Temperature Pulse Rate 79 73 73 Pulse Rate [Right] Respiratory Rate Blood Pressure Blood Pressure [Right Arm] O2 Sat by Pulse Oximetry 94 L 94 L 94 L 09/24/20 17:00 09/24/20 17:15 09/24/20 17:30 Temperature Pulse Rate 77 79 79 Pulse Rate [Right] Respiratory Rate Blood Pressure 132/74 Blood Pressure [Right Arm] O2 Sat by Pulse Oximetry 92 L 94 L 96 09/24/20 17:45 09/24/20 18:00 09/24/20 18:15 Temperature Pulse Rate 82 78 77 Pulse Rate [Right] Respiratory Rate Blood Pressure 152/85 Blood Pressure [Right Arm] O2 Sat by Pulse Oximetry 96 95 96 09/24/20 19:00 09/24/20 20:00 09/24/20 20:05 Temperature 98.1 F Pulse Rate 80 80 86 Pulse Rate [Right] Respiratory Rate Blood Pressure 150/81 147/95 Blood Pressure [Right Arm] O2 Sat by Pulse Oximetry 95 93 L 96 09/24/20 21:00 09/24/20 21:37 09/24/20 22:00 Temperature Pulse Rate 83 83 86 Pulse Rate [Right] Respiratory Rate 27 H Blood Pressure 153/84 164/83 Blood Pressure [Right Arm] O2 Sat by Pulse Oximetry 94 L 95 96 09/24/20 23:00 09/25/20 00:00 09/25/20 00:41 Temperature Pulse Rate 73 77 Pulse Rate [Right] Respiratory Rate 21 25 H Blood Pressure 110/65 128/69 Blood Pressure [Right Arm] O2 Sat by Pulse Oximetry 91 L 95 09/25/20 01:00 09/25/20 02:00 09/25/20 02:10 Temperature Pulse Rate 73 91 H Pulse Rate [Right] Respiratory Rate 19 31 H Blood Pressure 127/72 176/90 Blood Pressure [Right Arm] O2 Sat by Pulse Oximetry 94 L 97 09/25/20 03:00 09/25/20 03:01 09/25/20 04:00 Temperature 97.6 F Pulse Rate 64 64 Pulse Rate [Right] Respiratory Rate 17 20 Blood Pressure 98/73 137/77 Blood Pressure [Right Arm] O2 Sat by Pulse Oximetry 93 L 93 L 09/25/20 05:00 09/25/20 06:00 09/25/20 06:45 Temperature Pulse Rate 65 68 67 Pulse Rate [Right] Respiratory Rate 18 16 20 Blood Pressure 150/76 158/87 Blood Pressure [Right Arm] O2 Sat by Pulse Oximetry 95 94 L 96 09/25/20 07:00 09/25/20 07:15 09/25/20 07:30 Temperature Pulse Rate 65 67 66 Pulse Rate [Right] Respiratory Rate 20 17 20 Blood Pressure 156/72 Blood Pressure [Right Arm] O2 Sat by Pulse Oximetry 96 94 L 94 L 09/25/20 07:45 09/25/20 08:00 09/25/20 08:15 Temperature 97.5 F L Pulse Rate 65 68 73 Pulse Rate [Right] Respiratory Rate 18 28 H 24 Blood Pressure 162/77 Blood Pressure [Right Arm] O2 Sat by Pulse Oximetry 95 96 98 09/25/20 08:30 09/25/20 08:45 09/25/20 09:00 Temperature Pulse Rate 71 66 67 Pulse Rate [Right] Respiratory Rate 25 H 22 22 Blood Pressure 137/65 Blood Pressure [Right Arm] O2 Sat by Pulse Oximetry 95 93 L 94 L 09/25/20 09:15 09/25/20 09:30 09/25/20 09:45 Temperature Pulse Rate 68 67 69 Pulse Rate [Right] Respiratory Rate 20 21 25 H Blood Pressure Blood Pressure [Right Arm] O2 Sat by Pulse Oximetry 99 95 94 L 09/25/20 10:00 09/25/20 10:15 09/25/20 10:30 Temperature Pulse Rate 63 61 62 Pulse Rate [Right] Respiratory Rate 17 18 19 Blood Pressure 126/63 Blood Pressure [Right Arm] O2 Sat by Pulse Oximetry 93 L 92 L 92 L 09/25/20 12:15 09/25/20 12:30 09/25/20 12:45 Temperature Pulse Rate 71 71 70 Pulse Rate [Right] Respiratory Rate 23 31 H Blood Pressure Blood Pressure [Right Arm] O2 Sat by Pulse Oximetry 92 L 94 L 96 09/25/20 13:00 09/25/20 13:15 09/25/20 13:30 Temperature Pulse Rate 71 70 67 Pulse Rate [Right] Respiratory Rate 29 H 37 H 26 H Blood Pressure Blood Pressure [Right Arm] O2 Sat by Pulse Oximetry 94 L 95 95 09/25/20 13:45 09/25/20 14:00 09/25/20 14:15 Temperature Pulse Rate 69 67 68 Pulse Rate [Right] Respiratory Rate 25 H 31 H 26 H Blood Pressure Blood Pressure [Right Arm] O2 Sat by Pulse Oximetry 96 94 L 94 L 09/25/20 14:30 09/25/20 14:45 09/25/20 15:00 Temperature Pulse Rate 67 67 64 Pulse Rate [Right] Respiratory Rate 26 H 27 H 21 Blood Pressure Blood Pressure [Right Arm] O2 Sat by Pulse Oximetry 94 L 94 L 92 L 09/25/20 15:15 09/25/20 15:30 09/25/20 15:33 Temperature Pulse Rate 66 66 67 Pulse Rate [Right] Respiratory Rate 28 H 30 H 31 H Blood Pressure 153/71 Blood Pressure [Right Arm] O2 Sat by Pulse Oximetry 94 L 95 94 L 09/25/20 15:45 09/25/20 16:00 09/25/20 16:15 Temperature Pulse Rate 66 66 63 Pulse Rate [Right] Respiratory Rate 18 28 H 17 Blood Pressure 131/70 Blood Pressure [Right Arm] O2 Sat by Pulse Oximetry 94 L 94 L 95 09/25/20 16:30 09/25/20 16:45 09/25/20 17:00 Temperature Pulse Rate 63 65 70 Pulse Rate [Right] Respiratory Rate 26 H 24 30 H Blood Pressure Blood Pressure [Right Arm] O2 Sat by Pulse Oximetry 94 L 94 L 94 L 09/25/20 17:01 09/25/20 17:15 09/25/20 17:30 Temperature Pulse Rate 82 66 68 Pulse Rate [Right] Respiratory Rate 35 H 27 H 26 H Blood Pressure 157/77 Blood Pressure [Right Arm] O2 Sat by Pulse Oximetry 94 L 95 94 L 09/25/20 17:45 09/25/20 18:00 09/25/20 18:15 Temperature Pulse Rate 68 72 68 Pulse Rate [Right] Respiratory Rate 23 21 28 H Blood Pressure 147/71 Blood Pressure [Right Arm] O2 Sat by Pulse Oximetry 94 L 94 L 95 09/25/20 18:30 09/25/20 19:00 09/25/20 19:01 Temperature Pulse Rate 64 73 73 Pulse Rate [Right] Respiratory Rate 24 29 H 31 H Blood Pressure 141/62 Blood Pressure [Right Arm] O2 Sat by Pulse Oximetry 95 94 L 96 09/25/20 20:00 09/25/20 20:50 09/25/20 21:00 Temperature 97.8 F Pulse Rate 67 69 70 Pulse Rate [Right] Respiratory Rate 22 15 Blood Pressure 148/79 150/71 Blood Pressure [Right Arm] O2 Sat by Pulse Oximetry 98 94 L 100 09/25/20 22:00 09/25/20 23:00 09/26/20 00:00 Temperature 98.1 F Pulse Rate 81 63 58 L Pulse Rate [Right] Respiratory Rate 30 H 20 20 Blood Pressure 151/66 123/72 155/83 Blood Pressure [Right Arm] O2 Sat by Pulse Oximetry 92 L 97 97 09/26/20 01:00 09/26/20 02:00 09/26/20 03:00 Temperature Pulse Rate 62 59 L 57 L Pulse Rate [Right] Respiratory Rate 22 18 16 Blood Pressure 150/80 111/61 143/72 Blood Pressure [Right Arm] O2 Sat by Pulse Oximetry 97 96 97 09/26/20 04:00 09/26/20 04:05 09/26/20 05:00 Temperature 97.6 F Pulse Rate 62 67 Pulse Rate [Right] Respiratory Rate 16 24 Blood Pressure 159/74 177/78 Blood Pressure [Right Arm] O2 Sat by Pulse Oximetry 98 96 09/26/20 05:13 09/26/20 05:15 09/26/20 05:30 Temperature Pulse Rate 61 61 57 L Pulse Rate [Right] Respiratory Rate 22 20 13 Blood Pressure 135/68 Blood Pressure [Right Arm] O2 Sat by Pulse Oximetry 97 99 98 09/26/20 05:45 09/26/20 06:00 09/26/20 06:15 Temperature Pulse Rate 61 73 60 Pulse Rate [Right] Respiratory Rate 10 L 24 25 H Blood Pressure 162/68 Blood Pressure [Right Arm] O2 Sat by Pulse Oximetry 98 92 L 96 09/26/20 06:30 09/26/20 06:45 09/26/20 07:00 Temperature Pulse Rate 62 61 62 Pulse Rate [Right] Respiratory Rate 14 25 H 16 Blood Pressure 189/84 Blood Pressure [Right Arm] O2 Sat by Pulse Oximetry 96 97 98 09/26/20 07:15 09/26/20 07:30 09/26/20 07:45 Temperature Pulse Rate 60 59 L 71 Pulse Rate [Right] Respiratory Rate 15 19 29 H Blood Pressure Blood Pressure [Right Arm] O2 Sat by Pulse Oximetry 95 96 99 09/26/20 08:00 09/26/20 08:15 09/26/20 08:23 Temperature 97.5 F L Pulse Rate 69 66 80 Pulse Rate [Right] Respiratory Rate 32 H 33 H 40 H Blood Pressure 149/69 Blood Pressure [Right Arm] O2 Sat by Pulse Oximetry 90 L 96 97 Labs: Laboratory Last Values WBC 8.2 X10^3/uL (3.6-10.0) 09/26/20 04:40 RBC 4.32 X10^6/uL (4.7-6.0) L 09/26/20 04:40 Hgb 13.4 g/dL (13.5-18.0) L 09/26/20 04:40 Hct 37.9 % (42.0-54.0) L 09/26/20 04:40 MCV 87.7 fL (80.0-100.0) 09/26/20 04:40 MCH 31.0 pg (27.0-34.0) 09/26/20 04:40 MCHC 35.4 g/dL (33.0-35.0) H 09/26/20 04:40 RDW 14.2 % (11.6-16.5) 09/26/20 04:40 Plt Count 152 X10^3/uL (150.0-450.0) 09/26/20 04:40 Plt Count Comment Decreased (ADEQUATE) 09/25/20 04:46 MPV 7.2 fL (7.4-11.0) L 09/26/20 04:40 Neut % (Auto) 83.8 % (42.0-75.0) H 09/26/20 04:40 Lymph % (Auto) 6.1 % (21.0-51.0) L 09/26/20 04:40 Harding % (Auto) 10.1 % (0.0-13.0) 09/26/20 04:40 Eos % (Auto) 0.0 % (0.9-2.9) L 09/26/20 04:40 Baso % (Auto) 0 % (0.2-1.0) L 09/26/20 04:40 Neut # (Auto) 6.8 x10^3/uL (2.2-4.8) H 09/26/20 04:40 Lymph # (Auto) 0.5 X10^3/uL (1.3-2.9) L 09/26/20 04:40 Harding # (Auto) 0.8 x10^3/uL (0.3-0.8) 09/26/20 04:40 Eos # (Auto) 0.0 x10^3/uL (0.0-0.2) 09/26/20 04:40 Baso # (Auto) 0.0 X10^3/uL (0.0-0.1) 09/26/20 04:40 Absolute Nucleated RBC 0.1 /100WBC 09/26/20 04:40 Plt Morphology Comment Normal (NORMAL) 09/25/20 04:46 RBC Morphology Normal (NORMAL) 09/25/20 04:46 D-Dimer 1.69 ug/ml (0.0-0.57) H* 09/23/20 19:21 Sample Site Lra 09/23/20 19:34 ABG pH 7.460 (7.35-7.45) H 09/23/20 19:34 ABG pCO2 24.0 mmHg (35.0-45.0) L 09/23/20 19:34 ABG pO2 72.0 mmHg (80.0-100.0) L 09/23/20 19:34 ABG HCO3 17.1 mmol/L (22-26) L* 09/23/20 19:34 ABG O2 Saturation 95.0 % (90-100) 09/23/20 19:34 ABG Base Excess -5.1 mmol/L (-2.0-2.0) L 09/23/20 19:34 Stiven Test Pos 09/23/20 19:34 A-a Gradient 48.0 mmHg 09/23/20 19:34 FiO2 21.0 09/23/20 19:34 Blood Gas Comments Jani well mts 09/23/20 19:34 Sodium 143 mmol/L (136-145) 09/26/20 04:40 Corrected Sodium 146 mmol/L (136-145) H 09/26/20 04:40 Potassium 3.7 mmol/L (3.5-5.1) 09/26/20 04:40 Chloride 109 mmol/L (98-107) H 09/26/20 04:40 Carbon Dioxide 17.1 mmol/L (21-32) L 09/26/20 04:40 BUN 46 mg/dL (7-18) H 09/26/20 04:40 Creatinine 2.53 mg/dL (0.70-1.30) H 09/26/20 04:40 Est GFR (MDRD) Af Amer 32 (>60) L 09/26/20 04:40 Est GFR (MDRD) Non-Af 26 (>60) L 09/26/20 04:40 Glucose 236 mg/dL (65-99) H 09/26/20 04:40 POC Glucose (mg/dL) 332 mg/dL (65-99) H 09/26/20 00:37 Calcium 7.4 mg/dL (8.5-10.1) L 09/26/20 04:40 Corrected Calcium 8.3 mg/dL (8.5-10.1) L 09/26/20 04:40 Total Bilirubin 0.40 mg/dL (0.2-1.0) 09/26/20 04:40 AST 24 Units/L (15-37) 09/26/20 04:40 ALT 39 Units/L (12-78) 09/26/20 04:40 Alkaline Phosphatase 62 Units/L (46-116) 09/26/20 04:40 Creatine Kinase 81 Units/L (39-308) 09/23/20 19:21 CK-MB (CK-2) < 1.0 ng/mL (0-4.0) 09/23/20 19:21 CK/CKMB % Calc 1.2 % (<4) 09/23/20 19:21 Troponin I < 0.02 ng/mL (0-1.5) 09/23/20 19:21 C-Reactive Protein 20.20 mg/L (0-3.0) H 09/26/20 04:40 B-Natriuretic Peptide 42.8 pg/mL (0-79) 09/23/20 19:21 Total Protein 6.1 g/dL (6.4-8.2) L 09/26/20 04:40 Albumin 2.9 g/dL (3.4-5.0) L 09/26/20 04:40 Globulin 3.2 g/dL (2.5-4.5) 09/26/20 04:40 Albumin/Globulin Ratio 0.9 Ratio (1.1-2.1) L 09/26/20 04:40 SARS-CoV-2 (PCR) Positive (NEGATIVE) A 09/23/20 19:53 Influenza Type A (PCR) Negative (NEGATIVE) 09/23/20 19:53 Influenza Type B (PCR) Negative (NEGATIVE) 09/23/20 19:53 RSV (PCR) Negative (NEGATIVE) 09/23/20 19:53 Reason For Visit: COVID 19 PNEUMONIA Discharge Date Discharge Date: 09/26/20 Discharge Diagnosis All Active Problems (Updated 09/25/20 @ 11:20 by Osman Gudino) Dehydration (Acute) Acute on chronic renal failure (Acute) Pneumonia due to 2019 novel coronavirus (Acute) Plan of Treatment: Continue with present treatment and follow up plan. Pt is to keep follow up appointment as instructed and take medications as ordered. Discharge Medications Discharge Medications: No Known Drug Allergies Allergy (Verified 09/23/20 16:39) CONTINUE taking the following medications Januvia 25 mg PO HS 09/24/20 [History] calcitriol 25 mcg PO Q OTHER DAY 09/24/20 [History] glipizide 10 mg PO DAILY 09/24/20 [History] magnesium oxide 400 mg PO BID 09/24/20 [History] rosuvastatin 40 mg PO DAILY 09/24/20 [History] sodium bicarbonate 650 mg PO BID 09/24/20 [History] telmisartan 40 mg PO BID 09/24/20 [History] Follow up and Referral Follow Up: 1 Week Discharge Disposition Discharge Disposition: Home Discharge Condition: Stable Discharge Plan Discharge Plan Hospital Course: Pt is a 80 year old male past medical history of Hypertension, DMT2, CKD stage IV, admitted for COVID-19 pneumonia and Acute on Chronic Renal Failure, Dehydration. His hospital/treatment course included: IVF NS@75ml/h, Remdesivir, Decadron 6mg daily, scheduled Bronchodilators, Antibiotics: Zosyn, Ivermectin, immune supporting supplements, SSI, supplemental O2, I/S, Respiratory therapy consult, Pneumonia protocol. Labs/imaging: Wbc 8.2, Hgb 13.4, Plt 152, Na 143, K 3.7, Creatinine 2.40>2.53, Glucose 236, CRP 20, CXR:No significant change in left base opacity that may represent pneumonia with small pleural effusion. Pt responded well to treatments and was not requiring oxygen on discharge. He was discharged in stable condition. Instructed to follow up with pcp in 3-5 days. Patient Disposition: 01 HOME, SELF-CARE Condition: Stable Health Concerns: Post Hospitalization: new medications and changes needed to prevent readmission or further decline. Pt educated and given instructions on all concerns. Care Plan Goals: Problem: Respiratory Complications Goal: Improved Uncomplicated Respiratory Status Instructions: Follow provided instructions. Follow up with primary physician as directed. Contact primary care physician or report to the closest Emergency Room if condition worsens. Plan of Treatment: Continue with present treatment and follow up plan. Pt is to keep follow up appointment as instructed and take medications as ordered. Prescriptions: Continued glipizide 10 mg tablet extended release 24hr 10 mg PO DAILY RF: 0 magnesium oxide 400 mg (241.3 mg magnesium) tablet 400 mg PO BID RF: 0 sodium bicarbonate 650 mg tablet 650 mg PO BID RF: 0 telmisartan 20 mg tablet 40 mg PO BID RF: 0 calcitriol 0.25 mcg capsule 25 mcg PO Q OTHER DAY RF: 0 rosuvastatin 40 mg tablet 40 mg PO DAILY RF: 0 Januvia 50 mg tablet 25 mg PO HS RF: 0 Follow ups/Referrals Follow ups/Referrals: Guillermo Westbrook MD [Other] - 10/03/20 11:45 am (TeleMed appointment) Instructions Instructions: Fall Prevention in the Home, Adult, [id number], Viral Respiratory Infection, [id number], Hand Washing, Nguz-wi-Nyjt, Type 2 Diabetes Mellitus, Self Care, Adult, Petq-sg-[id number], Droplet Precautions, Gkyo-xt-Ouwq, Contact Precautions, Vnqf-nd-[id number], Hypertension, Upna-hb-[id number], Rehydration, Elderly, Dehydration, Elderly, Bywl-jf-Uern, Community-Acquired Pneumonia, Adult, Wjeq-ec-[id number] Stand Alone Forms: Precautions for COVID19, Patient Portal, Social Distancing
[2020-09-26] MEDS ORDERED: GLUCOTROL PO SCH (09:00)
[2020-09-26] MEDS ORDERED: REMDESIVIR 100 MG in NS 250 ML IV 250 ML IV ONE (09:00)
[2020-09-26] MEDS: PULMICORT NEB TX 0.5 MG NEB SCH (09:23)
[2020-09-26] MEDS: BROVANA IN SCH (09:23)
[2020-09-26] MEDS: MAG-OX TAB PO SCH (09:27)
[2020-09-26] MEDS: VITAMIN A PO SCH (09:28)
[2020-09-26] MEDS: THIAMINE HCL INJ IVP SCH (09:28)
[2020-09-26] MEDS: ZINC SULFATE PO SCH (09:28)
[2020-09-26] MEDS: PriLOSEC PO SCH (09:29)
[2020-09-26] MEDS: DECADRON TAB PO SCH (09:31)
[2020-09-26] MEDS: CRESTOR TAB 10 MG PO SCH (09:31)
[2020-09-26] MEDS: SODIUM BICARBONATE TAB 650MG PO SCH (09:45)
[2020-09-26] MEDS: LOVENOX INJ 30 MG SYR SC SCH (09:46)
[2020-09-26 13:32] VITALS: BP 155/79
== END 2020-09-26 12:00 | disposition home or self-care (01) | DRG 177 ==
LOC: ER 16:35 → ICU 21:09
PROVIDERS: ADMIT Family Medicine; ATTEND Family Medicine
DX: N17.8 Other acute kidney failure; I12.9 Hypertensive chronic kidney disease with stage 1 through stage 4 chronic kidney disease, or unspecified chronic kidney disease; R06.02 Shortness of breath; J90 Pleural effusion, not elsewhere classified; U07.1 COVID-19; N18.4 Chronic kidney disease, stage 4 (severe); E86.0 Dehydration; J12.82 Pneumonia due to coronavirus disease 2019; E11.65 Type 2 diabetes mellitus with hyperglycemia